=== PATIENT | male | born 1985 | race Caucasian/White ===

== ENCOUNTER 2024-07-22 18:40 | Emergency (ER) | payer BC ==
[~2024-07-22] VITALS: Ht 180.3 cm; Wt 113.6 kg
[2024-07-22 18:50] VITALS: TEMP 98.6
[2024-07-22] MEDS: LORazepam 2 MG/ML 1ML VIAL IV STA ×2 (20:12→20:58)
[2024-07-22 20:15] LABS: BASO % 0.2 % (0.0-1.0); EOS % 0.1 % (0.0-3.0); HEMATOCRIT 41.4 % (42.0-52.0); HEMOGLOBIN 14.7 g/dl (13.5-17.5); LYMPH # 1.6 10^3/uL (1.5-5.0); LYMPH % 11.5 % (24.0-44.0); MEAN CORPUSCULAR HEMOGLOBIN 32.6 pg (27.0-33.0); MEAN CORPUSCULAR HGB CONC 35.5 g/dl (32.0-36.5); MEAN CORPUSCULAR VOLUME 91.8 fl (80.0-96.0); MONO # 1.2 10^3/uL (0.0-0.8); MONO % 8.5 % (2.0-8.0); NEUTROPHILS # 11.2 10^3/uL (1.5-8.5); NEUTROPHILS % 79.1 % (36.0-66.0); PLATELET COUNT, AUTOMATED 235 10^3/uL (150-450); RED BLOOD COUNT 4.51 10^6/uL (4.30-6.10); WHITE BLOOD COUNT 14.1 10^3/uL (4.0-10.0)
[2024-07-22 20:41] LABS: ETHYL ALCOHOL (ETHANOL) < 0.003 % (0.000-0.010)
[2024-07-22 20:43] LABS: ALBUMIN 4.3 G/DL (3.2-5.2); ALKALINE PHOSPHATASE 77 U/L (40-129); ALT/SGPT 20 U/L (7.0-40); AST/SGOT 56 U/L (<34); BILIRUBIN,DIRECT 0.4 MG/DL (<0.4); BILIRUBIN,TOTAL 1.1 MG/DL (0.3-1.2); BLOOD UREA NITROGEN 14 MG/DL (9-23); CALCIUM LEVEL 9.5 MG/DL (8.5-10.1); CARBON DIOXIDE LEVEL 25 MMOL/L (20-31); CHLORIDE LEVEL 103 MMOL/L (98-107); CREATININE FOR GFR 1.02 MG/DL (0.70-1.30); GLOMERULAR FILTRATION RATE > 60.0 (>60); GLUCOSE, FASTING 100 MG/DL (60-100); POTASSIUM SERUM 4.1 MMOL/L (3.5-5.1); SALICYLATE LEVEL < 3.0 MG/DL (<30); SODIUM LEVEL 140 MMOL/L (136-145); TOTAL PROTEIN 8.5 G/DL (5.7-8.2)
[2024-07-22 20:44] LABS: THYROID STIMULATING HORMONE 1.606 uIU/ML (0.55-4.78)
[2024-07-22 20:51] LABS: BARBITURATES URINE NEGATIVE (NEGATIVE); BENZODIAZEPINES URINE NEGATIVE (NEGATIVE); COCAINE METABOLITE URINE NEGATIVE (NEGATIVE); METHADONE URINE NEGATIVE (NEGATIVE); OPIATES URINE NEGATIVE (NEGATIVE); PHENCYCLIDINE URINE NEGATIVE (NEGATIVE)
[2024-07-22 20:52] LABS: AMPHETAMINES LEVEL URINE POSITIVE (NEGATIVE); CANNABINOIDS URINE POSITIVE (NEGATIVE)
[2024-07-22 21:12] LABS: MAGNESIUM LEVEL 1.9 MG/DL (1.8-2.4)
[2024-07-22 21:17] LABS: CPK CREATINE PHOSPHOKINASE 1385 U/L (46-171)
[2024-07-22] MEDS: NS 1,000 ML IV ONE (21:47)
[2024-07-22 22:45] VITALS: BP 134/77
[2024-07-22 23:00] VITALS: O2SAT 96
== END 2024-07-22 23:01 | disposition home or self-care (01) ==
LOC: M ED 18:40
DX: F19.129 Other psychoactive substance abuse with intoxication, unspecified (principal); M62.82 Rhabdomyolysis
CPT/HCPCS: 80048; 80076; 80143; 80307; 82077; 82550; 83735; 84443; 85025; 93005; 93041; 94760; 96361; 96374; 96375; 99285; J2060